=== PATIENT | female | born 1980 | race African-American/Black ===

== ENCOUNTER 2019-01-20 01:28 | Emergency (ER) | payer OTHER ==
[~2019-01-20] VITALS: Ht 157.5 cm; Wt 49.9 kg
--- NOTE | ~2019-01-20 | EMS ---
[address] [address] EMS Patient Care Report Name: SAMI CALDERON Room #: DEP SANDRA Matthews#: [id number] Admission: 01/20/19 Attend Phys: Discharge: 01/20/19 Date of : 76 Report #: [id number] THIS REPORT FOR: //name// Report Transmitted: 01/22/2019 09:09 EMS Care Summary [place], [place]/[facility] Incident [id number] @ 01/20/2019 00:56 Incident Location [address] [place] [address] Patient SAMI CALDERON Female, 38 Years 1980 Patient Address [address] [place], [place] [id number] Patient History Other,Epilepsy, Patient Allergies No known allergies, Patient Medications Lamotrigine, Chief Complaint Vertigo Disposition Transported No Lights/[place] Dispatch Reason Sick Person Transported To [facility] Narrative Arrived on scene for a 38 y/o female that is sitting on the side of her bed. Pt has hx of vertigo and said that she has been having it for the past [address] [address] EMS Patient Care Report Name: SAMI CALDERON Room #: DEP Arnel.#: [id number] Admission: 01/20/19 Attend Phys: Discharge: 01/20/19 Date of : 76 Report #: [id number] Pt said that she has been taking her medications as rx but it hasn't helped at all. See Pt Assessment Vertigo See Flow Chart. When the Pt stood up to get to the cot, she got dizzy and almost fell. Was able to cath Initial Vitals @01:23P: 84,R: 16,BP: 114/78,Pain: 0/10,GCS: 15,Revised Trauma: 12, @01:15P: 86,R: 16,BP: 120/77,Pain: 0/10,GCS: 15,Revised Trauma: 12, Assessments @01:08MENTAL:Person Oriented,Time Oriented,Event Oriented,Place Oriented,SKIN:HEENT:Head/Face: No Abnormalities,Eyes: No Abnormalities,Neck/Airway: No Abnormalities,LUNG SOUNDS:General: No Abnormalities,Left Upper: No Abnormalities,Right Upper: No Abnormalities,Left Lower: No Abnormalities,Right Lower: No Abnormalities,ABDOMEN:General: No Abnormalities,Left Upper: No Abnormalities,Right Upper: No Abnormalities,Left Lower: No Abnormalities,Right Lower: No Abnormalities,PELVIS//GI:No Abnormalities,EXTREMITIES:Left Arm: No Abnormalities,Right Arm: No Abnormalities,Left Leg: No Abnormalities,Right Leg: No Abnormalities,PULSE:Radial: 2+ Normal,NEURO:Other, Impression Dizziness Procedures @01:08ALS AssessmentResponse: Unchanged Timeline 00:54,Call Received 00:54,Dispatch Notified 00:56,Dispatched 00:57,En Route 01:04,On Scene 01:08,At Patient 01:08,ALS Assessment,Response: Unchanged 01:15,BP: 120/77 M,PULSE: 86,RR: 16 R,SPO2: Ox,ETCO2: ,BG: ,PAIN: 0,GCS: 15, 01:18,Depart Scene 01:23,BP: 114/78 M,PULSE: 84,RR: 16 R,SPO2: Ox,ETCO2: ,BG: ,PAIN: 0,GCS: 15, 01:26,At Destination 01:38,Call Closed [facility] [address] [place] [address] EMS Patient Care Report Name: SAMI CALDERON [facility] [id number] Admission: 01/20/19 Attend Phys: Discharge: 01/20/19 Date of : 76 Report #: [id number] Disclaimer [email or web address] Copyright 2019 [employer] This EMS Care Summary contains data elements from the applicable legal record (which may be displayed differently). It is designed to provide pertinent information for the following purposes: continuity of care, clinical quality, and state data reporting. The complete legal record is available to ED staff and administrators of the receiving hospital in [facility]'s Patient Tracker. All data is provided "as is."
[2019-01-20] MEDS ORDERED: LAMICTAL XR200 MG PO (02:12)
[2019-01-20] MEDS ORDERED: VALIUM5 MG PO (03:22)
[2019-01-20] MEDS ORDERED: ZOFRAN ODT4 MG PO (03:23)
[2019-01-20 03:46] VITALS: BP 109/69
== END 2019-01-20 03:50 | disposition home or self-care (01) ==
LOC: ER 01:28
DX: H81.399 Other peripheral vertigo, unspecified ear (principal); Z88.6 Allergy status to analgesic agent